=== PATIENT | female | born 1960 | race Caucasian/White ===

== ENCOUNTER 2019-08-11 12:07 | Emergency (ER) | payer OTHER ==
[2019-08-11] MEDS: predniSONE 20 MG TAB PO (13:30)
[2019-08-11] MEDS: KETOROLAC 60 MG INJ IM (13:30)
== END 2019-08-11 14:15 | disposition home or self-care (01) ==
LOC: FTE 12:07
DX: M25.551 Pain in right hip (principal); I10 Essential (primary) hypertension
CPT/HCPCS: 73510; 96372; 99284-25